=== PATIENT | female | born 1985 | race Caucasian/White ===

== ENCOUNTER 2021-12-17 17:00 | Outpatient (RCR) | payer OTHER, SELFPAY | END 2022-02-07 17:29 | disposition home or self-care (01) | LOC: HO.PT 17:00 | PROVIDERS: PCP Internal Medicine; Visit Provider Nurse Practitioner Women's Health | DX: N39.46 Mixed incontinence (principal) | CPT/HCPCS: 97110; 97112; 97140; 97161; 97164 ==

== ENCOUNTER 2024-08-05 09:13 | Outpatient (RCR) | payer OTHER, SELFPAY | END 2024-09-09 13:38 | disposition home or self-care (01) | LOC: HO.PT 09:13 | PROVIDERS: PCP Internal Medicine; Visit Provider Nurse Practitioner Women's Health | DX: M62.9 Disorder of muscle, unspecified (principal) | CPT/HCPCS: 97110; 97112; 97140; 97161 ==